=== PATIENT | female | born 1995 | race Caucasian/White ===

== ENCOUNTER 2019-08-16 19:51 | Observation (INO) | payer BC, SELFPAY ==
[2019-08-16 21:26] LABS: #Basophils 0.1 thou/uL (0.0-0.2); #Eosinphils 0.3 thou/uL (0.0-0.7); #Lymphocytes 2.1 thou/uL (1.20-3.40); #Monocytes 1.5 thou/uL (0.11-0.59); #Neutrophils 14.2 thou/uL (1.40-6.50); %Basophils 0.4 % (0.0-1.0); %Eosinophils 1.4 % (0.0-10.0); %Lymphocytes 11.6 % (21.0-51.0); %Monocytes 8.2 % (0.0-10.0); %Neutrophils 78.4 % (42.0-75.0); Hemoglobin 16.6 g/dL (12.0-16.0); Mean Corpuscular HGB CONC 33.5 g/dL (32.0-36.0); Mean Corpuscular Hemoglobin 30.6 pg (27.0-31.0); Mean Corpuscular Volume 91.2 fL (78.0-98.0); Mean Platelet Volume 6.5 fL (7.4-10.4); Platelet Count 379 thou/uL (130-400); RBC Distribution Width 11.4 % (11.5-14.5); Red Blood Cell (RBC) Count 5.42 mill/uL (4.20-5.40)
[2019-08-16 21:34] LABS: BHCG - Serum Negative (NEGATIVE); Pregs Control Background? CLEAR/WHITE (CLR/WHITE); Pregs Control Bar Appear? YES (CONTROL BAR)
[2019-08-16 21:47] LABS: ALT (SGPT) 13 U/L (8-55); AST (SGOT) 14 U/L (5-34); Albumin 4.8 g/dL (3.5-5.0); Alkaline Phosphatase 95 U/L (40-110); Anion Gap 17 mmol/L (10-20); BUN (Urea Nitrogen) 8 mg/dL (7.0-18.7); Bilirubin, Total 0.4 mg/dL (0.2-1.2); Calc. Creatinine Clearance 0 mL/min (70-130); Calcium 9.9 mg/dL (7.8-10.44); Carbon Dioxide 22 mmol/L (22-29); Chloride 101 mmol/L (98-107); Estimated GFR-MDRD 83; Globulin 3.8 g/dL (2.4-3.5); Glucose 84 mg/dL (70-105); Potassium 3.8 mmol/L (3.5-5.1); Protein, Total 8.6 g/dL (6.0-8.3); Sodium 136 mmol/L (136-145)
[2019-08-16] MEDS ORDERED: cefTRIAXone\\ROCEPHIN 1 GM VIAL ONE ×2 (23:44→23:45)
[2019-08-16] MEDS ORDERED: Dexamethasone 10 MG/ML VIAL ONE ×2 (23:44→23:45)
[2019-08-17] MEDS ORDERED: Acetaminophen 500 MG TAB ONE (01:01)
[2019-08-17] MEDS ORDERED: Clindamycin/D5W 600 mg/50 ml Premix Bag ONE (02:06)
[2019-08-17 03:28] VITALS: BMI 31.1
[2019-08-17] MEDS: Sodium Chloride 0.9% 1,000 ML IV SCH ×2 (04:18→10:45)
[2019-08-17] MEDS ORDERED: cefTRIAXone\\ROCEPHIN 1 GM in Sodium Chloride 0.9% 100 ML IVPB SCH (07:30)
[2019-08-17] MEDS ORDERED: Dexamethasone 10 MG/ML VIAL SLOW IVP SCH (07:30)
--- NOTE | 2019-08-17 08:21 | CT ---
PRELIMINARY REPORT/[facility]/EMERGENCY AFTER HOURS PROCEDURE: EXAM: CT Neck with Intravenous Contrast. CLINICAL HISTORY: F26, pt reports fever, body aches, chills, and neck swelling and sore throat onset 1 week ago. pt report nausea and "dry heaves" but denies vomiting. Pt states her throat pain is so severe she has been unable to eat or drink for 1 week. TECHNIQUE: Axial computed tomography images of the neck with intravenous contrast. Sagittal and coron al reformations performed. CONTRAST: With; ISOVUE 370,100mL COMPARISON: None provided. FINDINGS: PHARYNX: Enlarged bilateral palatine tonsils. Rim-enhancing fluid collection in the left palatine to nsil measuring 1.9 x 1.4 cm. Rim-enhancing fluid collection in the right palatine tonsil measuring 1.5 x 1.1 cm. The nasopharynx and hypopharynx are unremarkable. No pharyngeal mucosal based mass les ions. LARYNX: The larynx is unremarkable. Normal epiglottis. RETROPHARYNGEAL SPACE: No retropharyngeal soft tissue swelling or gas. SALIVARY GLANDS: The parotid, submandibular, and sublingual glands are unremarkable. LYMPH NODES: Enlarged bilateral cervical chain lymph nodes measuring up to 2.3 cm in short axis. THYROID: The thyroid gland is unremarkable. No nodule. BONES: No acute osseous abnormality. IMPRESSION: Bilateral peritonsillar abscesses. Bilateral cervical chain lymphadenopathy, likely react samuel. ELECTRONICALLY SIGNED BY: Francisco Nelson MD Aug 17, 2019 12:38:07 AM CDT FINAL REPORT: EXAM: CT NECK SOFT TISSUE POST CONTRAST: HISTORY: Sore throat. Neck swelling. Flulike symptoms. COMPARISON: None. CORRELATION: None. FINDINGS: Brain parenchyma: No pathologic enhancement of the visualized brain parenchyma. Sinuses: Adequate aeration of the visualized paranasal sinuses and mastoid air cells. Nasopharynx:Adequate aeration. No mucosal abnormality. Oral cavity:Fullness of the adenoid and palatine tonsils. 1.1 x 1.8 cm hypodensity with peripheral en hancement just deep to the left palatine tonsil. 1.1 x 0.7 cm hypodensity just deep to the right palatine tonsil. Hypopharynx: No mucosal abnormality. Larynx: No mucosal abnormality. Paraspinal muscles: Symmetric attenuation of the paraspinal muscles and symmetric attenuation of the sternocleidomastoid muscles.. Parotid and salivary glands: Symmetric attenuation of the parotid and submandibular glands. Thyroid gland: Unremarkable. Spine: Vertebral body height is maintained. No fracture. No significant central canal stenosis or sig nificant neural foraminal narrowing. Limited evaluation due to technique. Lymph nodes: Enlarged right level 2 lymph node measures 2.6 x 2.2 cm. Enlarged left level 2 lymph nod e measures 2.3 x 2.0 cm. Additional enlarged soft tissue neck lymph nodes are scattered throughout the neck. Lung apices and upper mediastinum: No acute abnormality. IMPRESSION: 1. This report is in agreement with the initial report by [facility]. 2. Bilateral peritonsillar abscesses. 3. Enlarged soft tissue neck lymph nodes which are presumed to be reactive. Correlate clinically. Transcribed Date/Time: 08/17/2019 8:37 AM
[2019-08-17 11:07] VITALS: BP 118/80; TEMP 97.8
== END 2019-08-17 13:01 | disposition home or self-care (01) ==
LOC: ERS 19:51 → SURG A 08-17 01:27
PROVIDERS: ADMIT Specialist; ATTEND Specialist
DX: J36 Peritonsillar abscess (principal); E03.9 Hypothyroidism, unspecified; E28.2 Polycystic ovarian syndrome; F41.9 Anxiety disorder, unspecified; F31.9 Bipolar disorder, unspecified; F17.210 Nicotine dependence, cigarettes, uncomplicated; Z79.899 Other long term (current) drug therapy
CPT/HCPCS: 36415; 70491; 80053; 83605; 84703; 85025; 87040; 87430; 87804; 96361; 96365; 96366; 96367; 96375; 96376; G0378; J0696; J1100; J3490

== ENCOUNTER 2019-08-19 15:26 | Emergency (ER) | payer SELFPAY | END 2019-08-19 16:07 | disposition home or self-care (01) | LOC: ERS 15:26 | DX: A38.9 Scarlet fever, uncomplicated (principal); J02.0 Streptococcal pharyngitis; E03.9 Hypothyroidism, unspecified; E28.2 Polycystic ovarian syndrome; F41.9 Anxiety disorder, unspecified; F31.9 Bipolar disorder, unspecified; F17.210 Nicotine dependence, cigarettes, uncomplicated | CPT/HCPCS: 99282 ==